=== PATIENT | male | born 1955 | race Caucasian/White ===

== ENCOUNTER → 2018-01-12 | Outpatient (CLI) | payer BC, OTHER ==
[~2018-01-12] MED LIST: FLOMAX PO; LORTAB 7.5/5001 TA3 PO; NOHOMEMEDICATIONS; PERCOCET 7.5-31 EACH PO
== END | disposition home or self-care (01) ==
LOC: M.RAD 08:55
DX: M16.11 Unilateral primary osteoarthritis, right hip (principal); M25.751 Osteophyte, right hip; Z88.8 Allergy status to other drugs, medicaments and biological substances; Z79.899 Other long term (current) drug therapy; Z79.891 Long term (current) use of opiate analgesic